=== PATIENT | male | born 1950 | race Asian ===

== ENCOUNTER 2019-02-09 17:15 | Inpatient (IN) | payer MEDICARE ==
[~2019-02-09] VITALS: Ht 182.9 cm; Wt 73.5 kg
[2019-02-09] MEDS ORDERED: SODIUM CHLORIDE FLUSH 10ML SYR IVF ONE (17:30)
[2019-02-09] MEDS ORDERED: MAGNESIUM SULFATE PMX 2GM/50ML 50 ML IV ONE (17:30)
[2019-02-09] MEDS ORDERED: MAGNESIUM SULFATE PMX 2GM/50ML 50 ML ONE (17:34)
--- NOTE | 2019-02-09 17:45 | NUR ---
PT MELVI ORTIZ FROM [facility] FOR ETOH RELATED SEIZURE. EX- CALLED TO GIVE FURTHER MEDICAL INFORMATION ON PATIENT, INCLUDING THAT SHE FEELS THE PATIENT HAS HAD INCREASED CONFUSION OVER THE LAST FEW DAYS AND NEW ONSET OF ABDOMINAL DISTENSION. SHE ALSO STATES THAT PT IS A DNR, BUT SHE CAN'T GET THE PAPERWORK IN TO [facility]. LUIS - [phone]
[2019-02-09 18:02] LABS: TROPONIN I < 0.015 ng/mL (0.000-0.045)
[2019-02-09 18:48] LABS: FREE T4 (FREE THYROXINE) 0.37 ng/dL (0.76-1.46)
[2019-02-09] MEDS ORDERED: DOCUSATE 100 MG CAPSULE PO PRN (21:00)
[2019-02-09] MEDS ORDERED: OXYcodone IR 5MG TABLET PO PRN (21:00)
[2019-02-09] MEDS ORDERED: hydrALAzine 20 MG/ML, 1ML IVPush PRN (21:00)
[2019-02-09] MEDS ORDERED: LEVOTHYROXINE 100 MCG INJ IVPush SCH (21:00)
[2019-02-09] MEDS ORDERED: morphine SULFATE 10 MG/ML, 1ML IVPush PRN (21:00)
[2019-02-09] MEDS ORDERED: LORazepam 0.5MG TABLET PO PRN (21:00)
[2019-02-09] MEDS ORDERED: LORazepam 1MG TABLET PO PRN ×4 (21:00)
[2019-02-09] MEDS ORDERED: BISACODYL 10 MG SUPP PR PRN (21:00)
[2019-02-09] MEDS ORDERED: LORazepam 2 MG/ML, 1ML IV PRN ×5 (21:00)
[2019-02-09] MEDS ORDERED: PROMETHAZINE 25 MG/ML, 1ML IM PRN (21:00)
[2019-02-09] MEDS ORDERED: POLYETHYLENE GLYCOL 17 GM PACKET PO PRN (21:00)
[2019-02-09] MEDS ORDERED: PLEASE ENTER ALLERGIES MC SCH (21:00)
[2019-02-09] MEDS ORDERED: NICOTINE 7 MG/24 HR PATCH.TD24 TD SCH (21:30)
[2019-02-09] MEDS ORDERED: ONDANSETRON 2MG/ML, 2ML IVPush PRN (21:30)
[2019-02-09] MEDS ORDERED: ONDANSETRON ODT 4 MG PO PRN (21:30)
[2019-02-09 21:42] LABS: FREE T4 (FREE THYROXINE) 0.38 ng/dL (0.76-1.46)
[2019-02-09] MEDS: POTASSIUM CHLORIDE 20 MEQ, MAGNESIUM SULFATE 2 GM, THIAMINE 200 MG, MVI ADULT 10 ML, FO... IV SCH (21:45)
[2019-02-09 21:51] VITALS: BP 181/68
[2019-02-09 22:00] VITALS: BP 133/81
[2019-02-09] MEDS ORDERED: LEVOTHYROXINE 100 MCG INJ IVPush STA (23:33)
[2019-02-10] MEDS ORDERED: LIOTHYRONINE 5 MCG TABLET PO SCH
[2019-02-10] MEDS: LEVETIRACETAM 1,000 MG in SODIUM CHLORIDE 0.9% 100 ML IV SCH ×2 (00:17→11:56)
[2019-02-10] MEDS: HYDROCORTISONE 100 MG INJ. IVPush SCH ×3 (00:43→16:54)
[2019-02-10] MEDS ORDERED: LORazepam 2 MG/ML, 1ML IVPush PRN (07:00)
[2019-02-10 08:04] LABS: MEAN CORPUSCULAR HEMOGLOBIN 33.1 pg (27.5-34.5); MEAN CORPUSCULAR HGB CONC 32.5 g/dL (33.2-36.2); MEAN CORPUSCULAR VOLUME 101.8 fL (81-97); MEAN PLATELET VOLUME 7.3 fL (7.4-10.4); PLATELET COUNT 123 x10^3/uL (130-400); RED BLOOD COUNT 4.14 x10^6/uL (4.38-5.82); RED CELL DISTRIBUTION WIDTH 21.1 % (9.4-14.8)
[2019-02-10 08:11] LABS: CHLORIDE 105 mmol/L (98-107)
[2019-02-10 08:12] LABS: INTERNATIONAL NORMALIZED RATIO 1.15 (0.93-1.1)
[2019-02-10 08:19] LABS: ALANINE AMINOTRANSFERASE 50 U/L (12-78); ALBUMIN 3.4 g/dL (3.4-5.0); ALKALINE PHOSPHATASE 229 U/L (45-117); ANION GAP 11 mmol/L (5-15); BILIRUBIN,TOTAL 2.2 mg/dL (0.2-1.0); CALCIUM 8.1 mg/dL (8.5-10.1); CHOL/HDL RATIO 1.9; CHOLESTEROL, TOTAL 244 mg/dL (140-239); CREATININE 0.87 mg/dL (0.7-1.3); HDL CHOL % 52 % (26-37); HDL CHOLESTEROL (DIRECT) 126 mg/dL (40-60); LDL CHOLESTEROL,CALCULATED 102 mg/dL (54-169); LDL/HDL RATIO 0.8 (0.5-3.0); TOTAL PROTEIN 7.7 g/dL (6.4-8.2); TRIGLYCERIDES 80 mg/dL (50-200); VLDL CHOLESTEROL 16 mg/dL (0-25)
[2019-02-10] MEDS: CHLORDIAZEPOXIDE 25 MG CAPSULE PO SCH ×3 (08:33→20:37)
[2019-02-10] MEDS: LIOTHYRONINE 5 MCG TABLET PO SCH ×4 (08:33→20:37)
[2019-02-10] MEDS: LEVOTHYROXINE 100 MCG INJ IVPush SCH (08:34)
[2019-02-10 08:46] LABS: MD YES
[2019-02-10 09:27] LABS: <PLATELET ESTIMATE> ADEQUATE; <PLT MORPHOLOGY> NORMAL PLT MORPH; ANISOCYTOSIS 1+; BANDS%(MANUAL) 2 % (0-7); LYMPH#(MANUAL) 0.21 x10^3/uL (1-3.4); LYMPHS% (MANUAL) 4 % (22-44); SEG#(MANUAL) 4.89 x10^3/uL (1.8-6.8); SEGS% (MANUAL) 94 % (42-75); TARGET CELLS 1+
[2019-02-10] MEDS ORDERED: ATROPINE SYRINGE 0.1 MG/ML, 10ML IVPush PRN (10:00)
[2019-02-10] MEDS: SODIUM CHLORIDE 0.9% 1,000 ML IV SCH ×2 (10:38→21:52)
--- NOTE | 2019-02-10 12:00 | NUR ---
TF GOAL if needed: PROMOTE @ 80ML/HR
[2019-02-10] MEDS: POTASSIUM CHLORIDE 20 MEQ, MAGNESIUM SULFATE 2 GM, THIAMINE 200 MG, MVI ADULT 10 ML, FO... IV SCH (21:52)
[2019-02-11] MEDS: HYDROCORTISONE 100 MG INJ. IVPush SCH ×4 (00:10→23:37)
[2019-02-11] MEDS: LEVETIRACETAM 1,000 MG in SODIUM CHLORIDE 0.9% 100 ML IV SCH ×3 (00:10→22:36)
[2019-02-11 04:48] LABS: ALBUMIN 2.9 g/dL (3.4-5.0); ANION GAP 7 mmol/L (5-15); CALCIUM 7.5 mg/dL (8.5-10.1); CHLORIDE 109 mmol/L (98-107)
[2019-02-11 04:51] LABS: MEAN CORPUSCULAR HEMOGLOBIN 33.6 pg (27.5-34.5); MEAN CORPUSCULAR HGB CONC 32.8 g/dL (33.2-36.2); MEAN CORPUSCULAR VOLUME 102.5 fL (81-97); MEAN PLATELET VOLUME 7.3 fL (7.4-10.4); PLATELET COUNT 130 x10^3/uL (130-400); RED BLOOD COUNT 3.57 x10^6/uL (4.38-5.82); RED CELL DISTRIBUTION WIDTH 20.2 % (9.4-14.8)
[2019-02-11 04:52] LABS: ALANINE AMINOTRANSFERASE 35 U/L (12-78); ALKALINE PHOSPHATASE 172 U/L (45-117); BILIRUBIN,TOTAL 1.7 mg/dL (0.2-1.0); TOTAL PROTEIN 6.7 g/dL (6.4-8.2)
[2019-02-11 05:53] LABS: BASOPHILS % (AUTO) 0 % (0-1); EOSINOPHILS % (AUTO) 0 % (1-7); LYMPHOCYTES # (AUTO) 0.59 x10^3/uL (1-3.4); LYMPHOCYTES % (AUTO) 9 % (22-44); MONOCYTES # (AUTO) 0.26 x10^3/uL (0.2-0.8); MONOCYTES % (AUTO) 4 % (2-9); NEUTROPHILS % (AUTO) 87 % (42-75)
[2019-02-11 06:02] LABS: MD SCAN
[2019-02-11] MEDS: CHLORDIAZEPOXIDE 25 MG CAPSULE PO SCH ×2 (08:00→16:18)
[2019-02-11] MEDS: LEVOTHYROXINE 100 MCG INJ IVPush SCH (08:00)
[2019-02-11] MEDS: LIOTHYRONINE 5 MCG TABLET PO SCH ×3 (08:01→21:29)
[2019-02-11] MEDS: SODIUM CHLORIDE 0.9% 1,000 ML IV SCH (11:47)
--- NOTE | 2019-02-11 12:50 | NUR ---
REC: Regular/thins; orange sheet posted with swallowing precautions Addendum: 02/11/19 at 1251 by Arlen AZUL Amended: Links added.
[2019-02-11] MEDS: CHLORDIAZEPOXIDE 10 MG CAPSULE PO SCH (21:29)
[2019-02-11] MEDS: CHLORDIAZEPOXIDE 5 MG CAPSULE PO SCH (21:29)
[2019-02-11] MEDS: POTASSIUM CHLORIDE 20 MEQ, MAGNESIUM SULFATE 2 GM, THIAMINE 200 MG, MVI ADULT 10 ML, FO... IV SCH ×2 (21:30→22:52)
[2019-02-12] MEDS: SODIUM CHLORIDE 0.9% 1,000 ML IV SCH (00:57)
[2019-02-12] MEDS: ALBUTEROL SULFATE 2.5 MG/3 ML NPPB PRN ×2 (01:51→18:45)
[2019-02-12 04:39] LABS: BASOPHILS % (AUTO) 0 % (0-1); EOSINOPHILS # (AUTO) 0.05 x10^3/uL (0-0.4); EOSINOPHILS % (AUTO) 1 % (1-7); LYMPHOCYTES % (AUTO) 8 % (22-44); MD NO; MEAN CORPUSCULAR HEMOGLOBIN 33.4 pg (27.5-34.5); MEAN CORPUSCULAR HGB CONC 32.2 g/dL (33.2-36.2); MEAN CORPUSCULAR VOLUME 103.7 fL (81-97); MEAN PLATELET VOLUME 7.4 fL (7.4-10.4); MONOCYTES # (AUTO) 0.25 x10^3/uL (0.2-0.8); MONOCYTES % (AUTO) 4 % (2-9); NEUTROPHILS # (AUTO) 6.46 x10^3/uL (1.8-6.8); NEUTROPHILS % (AUTO) 88 % (42-75); PLATELET COUNT 135 x10^3/uL (130-400); RED BLOOD COUNT 3.65 x10^6/uL (4.38-5.82)
[2019-02-12 04:46] LABS: ALBUMIN 3.2 g/dL (3.4-5.0); ANION GAP 6 mmol/L (5-15); CHLORIDE 110 mmol/L (98-107)
[2019-02-12 04:56] LABS: ALANINE AMINOTRANSFERASE 44 U/L (12-78); ALKALINE PHOSPHATASE 177 U/L (45-117); BILIRUBIN,TOTAL 1.2 mg/dL (0.2-1.0); CREATININE 1.03 mg/dL (0.7-1.3); FREE T4 (FREE THYROXINE) 0.69 ng/dL (0.76-1.46); TOTAL PROTEIN 7.1 g/dL (6.4-8.2)
[2019-02-12] MEDS ORDERED: SODIUM PHOSPHATE 40 MMOL in SODIUM CHLORIDE 0.9% 500 ML IV ONE (07:30)
[2019-02-12] MEDS: LIOTHYRONINE 5 MCG TABLET PO SCH ×3 (08:12→20:54)
[2019-02-12] MEDS: CHLORDIAZEPOXIDE 5 MG CAPSULE PO SCH (08:12)
[2019-02-12] MEDS: CHLORDIAZEPOXIDE 10 MG CAPSULE PO SCH (08:13)
[2019-02-12] MEDS: POTASSIUM CHLORIDE 20 MEQ TAB.ER.PRT PO SCH ×2 (08:16→16:02)
[2019-02-12] MEDS: LEVOTHYROXINE 100 MCG INJ IVPush SCH (08:16)
[2019-02-12] MEDS: LOSARTAN 25MG TABLET PO SCH (08:18)
--- NOTE | 2019-02-12 14:50 | NUR ---
REC GROUND/NTL; ORANGE SHEET WITH DIET RECS AND SWALLOW STRATEGIES POSTED AT BEDSIDE. Addendum: 02/12/19 at 1452 by Tonya AZUL Amended: Links added.
[2019-02-12] MEDS ORDERED: POTASSIUM CHLORIDE 10 MEQ TABLET.ER ONE (15:57)
[2019-02-12 19:47] VITALS: BP 154/93
[2019-02-12] MEDS: POTASSIUM CHLORIDE 20 MEQ, MAGNESIUM SULFATE 2 GM, THIAMINE 200 MG, MVI ADULT 10 ML, FO... IV SCH (21:45)
[2019-02-13 01:27] VITALS: BP 160/90
[2019-02-13 07:09] VITALS: BP 151/85
[2019-02-13] MEDS ORDERED: SODIUM PHOSPHATE 40 MMOL in SODIUM CHLORIDE 0.9% 500 ML IV ONE (07:30)
[2019-02-13] MEDS: LOSARTAN 25MG TABLET PO SCH ×2 (09:01→20:26)
[2019-02-13] MEDS: LIOTHYRONINE 5 MCG TABLET PO SCH ×3 (09:01→20:26)
[2019-02-13] MEDS: POTASSIUM CHLORIDE 20 MEQ TAB.ER.PRT PO SCH ×2 (09:02→16:26)
[2019-02-13] MEDS: LEVOTHYROXINE 100 MCG INJ IVPush SCH (09:03)
[2019-02-13] MEDS: ALBUTEROL SULFATE 2.5 MG/3 ML NPPB PRN ×2 (10:20→20:59)
[2019-02-13 15:35] VITALS: BP 149/95
[2019-02-13 20:02] VITALS: BP 146/87
[2019-02-13] MEDS: POTASSIUM CHLORIDE 20 MEQ, MAGNESIUM SULFATE 2 GM, THIAMINE 200 MG, MVI ADULT 10 ML, FO... IV SCH (20:33)
[2019-02-14 00:55] VITALS: BP 137/84
[2019-02-14 08:16] VITALS: BP 156/104
[2019-02-14] MEDS: LOSARTAN 25MG TABLET PO SCH ×2 (08:57→20:22)
[2019-02-14] MEDS: LIOTHYRONINE 5 MCG TABLET PO SCH ×3 (08:58→20:22)
[2019-02-14] MEDS: LEVOTHYROXINE 100 MCG INJ IVPush SCH (08:58)
[2019-02-14 10:40] VITALS: BP 157/75
[2019-02-14 12:09] LABS: CALCIUM 8.6 mg/dL (8.5-10.1); CHLORIDE 108 mmol/L (98-107)
[2019-02-14 12:13] LABS: ANION GAP 8 mmol/L (5-15); CREATININE 0.92 mg/dL (0.7-1.3)
[2019-02-14] MEDS: ALBUTEROL SULFATE 2.5 MG/3 ML NPPB PRN (16:15)
--- NOTE | 2019-02-14 17:44 | NUR ---
REC CHOPPED/THIN; swallow precautions sheet posted at bedside Addendum: 02/14/19 at [address] Amended: Links added.
[2019-02-14 19:25] VITALS: BP 137/78
[2019-02-14] MEDS: POTASSIUM CHLORIDE 20 MEQ, MAGNESIUM SULFATE 2 GM, THIAMINE 200 MG, MVI ADULT 10 ML, FO... IV SCH (20:22)
[2019-02-15 01:13] VITALS: BP 132/72
[2019-02-15 06:05] LABS: ANION GAP 8 mmol/L (5-15); CALCIUM 8.8 mg/dL (8.5-10.1); CHLORIDE 104 mmol/L (98-107)
[2019-02-15 06:17] LABS: CREATININE 0.86 mg/dL (0.7-1.3); FREE T4 (FREE THYROXINE) 0.87 ng/dL (0.76-1.46)
[2019-02-15 07:29] VITALS: BP 145/76
[2019-02-15] MEDS ORDERED: LEVOTHYROXINE 88 MCG TABLET PO SCH (07:30)
[2019-02-15] MEDS ORDERED: LEVOTHYROXINE 88 MCG TABLET ONE (08:04)
[2019-02-15] MEDS: LOSARTAN 25MG TABLET PO SCH (08:12)
[2019-02-15] MEDS ORDERED: LEVO88TA2 PO (12:43)
[2019-02-15] MEDS ORDERED: LOSA25TA25 PO (12:43)
== END 2019-02-15 15:13 | disposition home or self-care (01) | DRG 80 ==
LOC: ED 17:28 → EDIP 18:35 → 5SO 19:59 → CCU 23:48 → 5SO 02-12 13:25 → DCLOUNGE 02-15 15:06
PROVIDERS: ADMIT Internal Medicine; ATTEND Internal Medicine
DX: E03.5 Myxedema coma (principal); I50.31 Acute diastolic (congestive) heart failure; G40.89 Other seizures; F10.239 Alcohol dependence with withdrawal, unspecified; I85.00 Esophageal varices without bleeding; I11.0 Hypertensive heart disease with heart failure; I44.1 Atrioventricular block, second degree; E03.4 Atrophy of thyroid (acquired); E78.5 Hyperlipidemia, unspecified; E83.42 Hypomagnesemia; E87.6 Hypokalemia; F03.90 Unspecified dementia, unspecified severity, without behavioral disturbance, psychotic disturbance, mood disturbance, and anxiety; F17.200 Nicotine dependence, unspecified, uncomplicated; G89.29 Other chronic pain; I05.8 Other rheumatic mitral valve diseases; J44.9 Chronic obstructive pulmonary disease, unspecified; K21.9 Gastro-esophageal reflux disease without esophagitis; K70.9 Alcoholic liver disease, unspecified; K70.30 Alcoholic cirrhosis of liver without ascites; K76.0 Fatty (change of) liver, not elsewhere classified; Z86.73 Personal history of transient ischemic attack (TIA), and cerebral infarction without residual deficits; Z91.19 Patient's noncompliance with other medical treatment and regimen
CPT/HCPCS: 36415; 70450; 71045; 74018; 74230; 80048; 80053; 80061; 80307; 82140; 82533; 82962; 83036; 83690; 83735; 84100; 84436; 84439; 84443; 84481; 84484; 85025; 85610; 87081; 93005; 93308; 93321; 93325; 94640; 96365; 96366; G0378; J1953; J3411; J3475; J3480; J7042; J7613; J0360; J1720; J2060; J7030; J7040